=== PATIENT | male | born 1945 | race Caucasian/White ===

== ENCOUNTER → 2019-01-18 09:36 | Outpatient (CLI) | payer MEDICARE, OTHER, SELFPAY ==
[2019-01-18 11:52] LABS: BUN Creatinine Ratio 22.2 (6-22); Blood Urea Nitrogen 20 mg/dL (9-20); Calcium 9.4 mg/dL (8.4-10.2); Carbon Dioxide 29 mmol/L (22-32); Chloride 103 mmol/L (98-107); Cholesterol 202 mg/dL (140-199); Estimated Glomerular Filt Rate > 60.0 mL/min (>60); Glucose 86 mg/dL (80-110); HDL Cholesterol 63 mg/dL (40-60); HEMOLYSIS < 15 (0-50); LDL Cholesterol Calculated 128 mg/dL (<100); Potassium 4.6 mmol/L (3.4-5.1); Sodium 140 mmol/L (137-145); Triglycerides 54 mg/dL (35-150)
[2019-01-18 12:22] LABS: Prostate Specific Antigen Scrn 1.18 ng/mL (0.1-4.0)
[2019-01-18 13:04] LABS: Free T4, Direct Thyroxine 0.58 ng/dL (0.78-2.19)
== END ==
PROVIDERS: PCP Internal Medicine; Visit Provider Internal Medicine
DX: I10 Essential (primary) hypertension (principal); E78.5 Hyperlipidemia, unspecified; E03.9 Hypothyroidism, unspecified; Z12.5 Encounter for screening for malignant neoplasm of prostate
CPT/HCPCS: 36415; 80048; 80061; 84439; 84443; G0103

== ENCOUNTER → 2019-05-01 09:47 | Outpatient (CLI) | payer MEDICARE, OTHER, SELFPAY ==
[2019-05-01 11:35] LABS: Alanine Aminotransferase 16 IU/L (<50); Albumin 4.8 g/dL (3.5-5.0); Albumin Globulin Ratio 1.5 (1.0-2.8); Alkaline Phosphatase 52 U/L (38-126); Aspartate Aminotransferase 31 IU/L (17-59); Bilirubin Total 0.9 mg/dL (0.2-1.3); Blood Urea Nitrogen 17 mg/dL (9-20); Calcium 9.7 mg/dL (8.4-10.2); Carbon Dioxide 31 mmol/L (22-32); Chloride 99 mmol/L (98-107); Cholesterol 244 mg/dL (140-199); Estimated Glomerular Filt Rate > 60.0 mL/min (>60); Globulin 3.3 g/dL (1.7-4.1); Glucose 84 mg/dL (80-110); HDL Cholesterol 78 mg/dL (40-60); HEMOLYSIS < 15 (0-50); LDL Cholesterol Calculated 153 mg/dL (<100); Potassium 4.3 mmol/L (3.4-5.1); Sodium 138 mmol/L (137-145); Total Protein 8.1 g/dL (6.3-8.2); Triglycerides 67 mg/dL (35-150)
[2019-05-01 11:51] LABS: Free T4, Direct Thyroxine 0.62 ng/dL (0.78-2.19)
[2019-05-03 19:27] LABS: Triiodothyronine T3 Total 101 ng/dL (76-181)
== END ==
PROVIDERS: PCP Internal Medicine; Visit Provider Internal Medicine
DX: E03.9 Hypothyroidism, unspecified (principal); E78.5 Hyperlipidemia, unspecified
CPT/HCPCS: 36415; 80053; 80061; 84439; 84443; 84480

== ENCOUNTER → 2019-07-17 08:41 | Outpatient (CLI) | payer MEDICARE, OTHER, SELFPAY ==
[2019-07-17 10:24] LABS: High Sensitivity CRP - Cardiac 0.5 mg/L (1.0-3.0)
[2019-07-19 14:56] LABS: Apolipoprotein A1 180 mg/dL (> 114); Apolipoprotein B 103 mg/dL (< 90)
== END ==
PROVIDERS: PCP Internal Medicine; Referring Provider Internal Medicine; Visit Provider Internal Medicine
DX: E78.5 Hyperlipidemia, unspecified (principal)
CPT/HCPCS: 36415; 82172; 86140

== ENCOUNTER → 2020-02-09 09:00 | Outpatient (CLI) | payer MEDICARE, OTHER, SELFPAY ==
[2020-02-09 09:22] LABS: Add Manual Diff / Slide Review NO; Basophils Absolute Auto 0 /uL (0-100); Basophils Percent Auto 0.5 % (0-2); Eosinophils Absolute Auto 100 /uL (0-450); Eosinophils Percent Auto 2.8 % (2-4); Hematocrit 45.3 % (41-53); Hemoglobin 15.2 g/dL (13.5-17.5); Lymphocytes Absolute Auto 1400 /uL (1100-4500); Lymphocytes Percent Auto 30.7 % (25-40); Mean Corpuscular HGB Conc 33.6 % (30-36); Mean Corpuscular Hemoglobin 33.1 PG (26-34); Mean Corpuscular Volume 98.4 fL (80-100); Monocytes Absolute Auto 800 /uL (0-900); Monocytes Percent Auto 17.1 % (3-14); Neutrophils Absolute Auto 2300 /uL (1500-7000); Neutrophils Percent Auto 48.9 % (50-75); Platelet Count 246 X10^3/uL (150-400); Red Cell Distribution Width 13.8 % (11.6-14.8); White Blood Cell Count 4.7 X10^3/uL (4.5-11.0)
[2020-02-09 09:42] LABS: Alanine Aminotransferase 17 IU/L (<50); Albumin 4.5 g/dL (3.5-5.0); Albumin Globulin Ratio 1.4 (1.0-2.8); Alkaline Phosphatase 51 U/L (38-126); Aspartate Aminotransferase 30 IU/L (17-59); BUN Creatinine Ratio 16.5 (6-22); Blood Urea Nitrogen 15 mg/dL (9-20); Calcium 9.5 mg/dL (8.4-10.2); Carbon Dioxide 28 mmol/L (22-32); Chloride 102 mmol/L (98-107); Cholesterol 212 mg/dL (140-199); Estimated Glomerular Filt Rate > 60.0 mL/min (>60); Globulin 3.3 g/dL (1.7-4.1); Glucose 92 mg/dL (80-110); HDL Cholesterol 84 mg/dL (40-60); HEMOLYSIS < 15 (0-50); LDL Cholesterol Calculated 112 mg/dL (<100); Potassium 4.3 mmol/L (3.4-5.1); Sodium 137 mmol/L (137-145); Total Protein 7.8 g/dL (6.3-8.2); Triglycerides 80 mg/dL (35-150)
[2020-02-09 09:56] LABS: Free T3, Triiodothyronine Free 3.39 pg/mL (2.77-5.27); Free T4, Direct Thyroxine 0.72 ng/dL (0.78-2.19)
[2020-02-10 08:11] LABS: Triiodothyronine T3 Total 83 ng/dL (71-180)
== END ==
PROVIDERS: PCP Internal Medicine; Referring Provider Internal Medicine; Visit Provider Internal Medicine
DX: E78.5 Hyperlipidemia, unspecified (principal); I10 Essential (primary) hypertension; E03.9 Hypothyroidism, unspecified
CPT/HCPCS: 36415; 80053; 80061; 84439; 84443; 84480; 84481; 85025

== ENCOUNTER → 2020-02-29 10:27 | Outpatient (CLI) | payer MEDICARE, OTHER, SELFPAY ==
[2020-03-01 14:12] LABS: COVID19 Sendout Not Detected (Not Detect)
== END ==
PROVIDERS: PCP Internal Medicine; Visit Provider Physician Assistant
DX: Z11.59 Encounter for screening for other viral diseases (principal)
CPT/HCPCS: 87635

== ENCOUNTER 2020-03-03 08:59 | Day surgery (SDC) | payer MEDICARE, OTHER, SELFPAY ==
[2020-03-02 08:48] VITALS: BMI 22.7
[2020-03-03 09:34] VITALS: BP 146/85; PULSE 63; RESP 16; TEMP 36.3; O2SAT 98; BMI 22.6
[2020-03-03] MEDS: LACTATED RINGERS 1,000 ML 100 ML IV (09:44)
--- NOTE | 2020-03-03 10:56 | PM.PREOP ---
Pre-operative Note COVID-19 COVID-19 status: Negative Result date/Date tested (Pos, Neg/Pending): 02/29/20 Interval Note History & Physical reviewed/Exam performed by Physician: Yes Changes to H&P: No
[2020-03-03] MEDS: CEFAZOLIN 2 GM/100 ML FROZ.PIGGY IV (11:22)
--- NOTE | 2020-03-03 11:37 | SUR.OPER ---
Supine on padded OR bed, head on pillow, arms secured on padded arm boards at <90 degrees abduction, legs uncrossed, safety belt at thigh, tape over blanket over lower legs.
[2020-03-03] MEDS: BUPIVACAINE 0.25% W/ EPI 30 ML VIAL INJ ×2 (11:49→11:54)
[2020-03-03] MEDS: BUPIVACAINE LIPOSOME 266 MG/20 ML VIAL INJ (11:54)
--- NOTE | 2020-03-03 12:25 | P.OP_ITS ---
Operative Date/Time/Diagnoses Date of procedure: 03/03/20 Time of procedure: 12:25 Procedure & Clinicians Procedure: Open repair of incarcerated inguinal hernia with mesh Same procedure as scheduled: Yes Indications: Symptomatic left inguinal hernia; not reducible Surgeon: Emilia Johnson Click Yes if Unassisted: Yes Anesthesia Type: General Operative Notes Findings: direct hernia, incarcerated fat; attenuated and scarred nerve fibers Specimen(s): none sent Prosthetic devices, grafts, tissues, transplants, or devices: BARD soft mesh Estimated Blood Loss (mL): 1 Procedure in detail: The patient was brought into the OR, placed supine on the OR table, and appropriate preoperative antibiotics were given. Sequential compression devices were placed on both legs and turned on. General anesthesia was induced and the patient was intubated with an LMA by the anesthesiologist. The right lower abdomen and groin were prepped and draped in sterile fashion for inguinal incision. A surgical time out was conducted. Local anesthetic was infiltrated into the skin and a 15 blade was used to make an oblique 10cm incision two finger breadths superior to the inguinal ligament. Dissection was carried down to through the subcutaneous fat and darius's fascia. Dissection was carried down to the aponeurosis of the external oblique. Using a fresh 15 blade, I opened the aponeurosis after giving generous local anesthetic. There was an incarcerated direct inguinal hernia, a very scarred and attenuated charleen oinguinal nerve, and a weak inguinal canal floor. I divided the scarred nerve fibers using Metzenbaum scissors, and tucked the proximal end into muscle. I then gave local anesthetic in the inguinal canal floor, pubic tubercle, and conjoint tendon, using a total of 60mL of 0.25% Marcaine with Epi. I also infiltrated the area superior to Poupart's ligament with 20mL Exparel in small aliquots. Incarcerated fat was seen trapped in the direct hernia defect. The hernia sac was opened, and the incarcerated fat was divided and freed from the inguinal floor and reduced. The canal floor and direct defect were closed using 2-0 PDS. A BARD macroporous inguinal hernia mesh was then brought into the field and shaped to fit the groin. I secured it to the ligaments overlying the pubic tubercle with 2cm overlap, and then secured it to the inguinal ligament inferiorly and the conjoint tendon superiorly with 2-0 PDS suture. I made an opening in the mesh to accommodate the spermatic cord, ensuring it was appropriately sized to avoid strangulation of the cord. Once the mesh was secure, I closed the external oblique aponeurosis with 3-0 Vicryl. I closed the Darius's fascia with 3-0 Vicryl. The remaining local anesthetic was given in the skin and soft tissue. The skin was closed with running 4-0 Monocryl subcuticular stitch. The skin edges were sealed with Dermabond. The patient was awakened from anesthesia and extubated. He tolerated the procedure well. Needle, sponge and instrument counts were correct x 2. The patient was transferred to PACU in stable condition. Complications: none Post-operative Condition: stable Disposition: PACU
[2020-03-03 12:26] VITALS: BP 134/88; PULSE 89; RESP 11; TEMP 36.5; O2SAT 94
[2020-03-03 12:31] VITALS: BP 139/85; PULSE 89; RESP 14; TEMP 36.2; O2SAT 95
[2020-03-03 12:36] VITALS: BP 120/77; PULSE 79; RESP 13; TEMP 36.7; O2SAT 95
[2020-03-03 12:49] VITALS: BP 118/85; PULSE 77; RESP 19; TEMP 36.4; O2SAT 95
== END 2020-03-03 13:03 | disposition home or self-care (01) ==
PROVIDERS: PCP Internal Medicine; Referring Provider Surgery; Visit Provider Surgery
PROC: (CPT 49507; principal; 2020-03-03 10:45)
DX: K40.90 Unilateral inguinal hernia, without obstruction or gangrene, not specified as recurrent (principal)
CPT/HCPCS: 49507; C1781; C9290; J0690; J1100; J1885; J2250; J2405; J2704; J3010

== ENCOUNTER → 2020-05-18 11:30 | Outpatient (CLI) | payer MEDICARE, OTHER, SELFPAY ==
[2020-05-18 16:25] LABS: Free T4, Direct Thyroxine 1.09 ng/dL (0.78-2.19)
[2020-05-18 16:37] LABS: Prostate Specific Antigen 2.66 ng/mL (0.10-4.00)
== END ==
PROVIDERS: PCP Internal Medicine; Referring Provider Internal Medicine; Visit Provider Internal Medicine
DX: Z12.5 Encounter for screening for malignant neoplasm of prostate (principal); E03.9 Hypothyroidism, unspecified
CPT/HCPCS: 36415; 84153; 84439; 84443; G0103

== ENCOUNTER → 2020-10-26 07:59 | Outpatient (CLI) | payer MEDICARE, OTHER, SELFPAY ==
[2020-10-26 09:27] LABS: Alanine Aminotransferase 16 IU/L (<50); Albumin 4.1 g/dL (3.5-5.0); Albumin Globulin Ratio 1.2 (1.0-2.8); Alkaline Phosphatase 44 U/L (38-126); Aspartate Aminotransferase 34 IU/L (17-59); Bilirubin Total 0.6 mg/dL (0.2-1.3); Blood Urea Nitrogen 18 mg/dL (9-20); Calcium 9.4 mg/dL (8.4-10.2); Carbon Dioxide 29 mmol/L (22-32); Chloride 102 mmol/L (98-107); Cholesterol 207 mg/dL (140-199); Estimated Glomerular Filt Rate > 60.0 mL/min (>60); Globulin 3.3 g/dL (1.7-4.1); Glucose 93 mg/dL (80-110); HDL Cholesterol 70 mg/dL (40-60); HEMOLYSIS < 15 (0-50); LDL Cholesterol Calculated 126 mg/dL (<100); Potassium 4.2 mmol/L (3.4-5.1); Sodium 137 mmol/L (137-145); Total Protein 7.4 g/dL (6.3-8.2); Triglycerides 55 mg/dL (35-150)
[2020-10-26 10:11] LABS: Vitamin D 25 Hydroxy (D3) 47.9 ng/mL (30.0-100.0)
[2020-10-26 10:16] LABS: Free T4, Direct Thyroxine 0.96 ng/dL (0.78-2.19)
[2020-10-26 10:30] LABS: Thyroid Stimulating Hormone 6.42 uIU/mL (0.47-4.68)
== END ==
PROVIDERS: PCP Internal Medicine; Referring Provider Internal Medicine; Visit Provider Internal Medicine
DX: E03.9 Hypothyroidism, unspecified (principal); E55.9 Vitamin D deficiency, unspecified; K21.9 Gastro-esophageal reflux disease without esophagitis
CPT/HCPCS: 36415; 80053; 80061; 82306; 84439; 84443

== ENCOUNTER → 2022-09-18 16:10 | Outpatient (CLI) | payer MEDICARE, SELFPAY ==
[2022-09-18 17:34] LABS: Alanine Aminotransferase 19 IU/L (<50); Albumin 4.1 g/dL (3.5-5.0); Albumin Globulin Ratio 1.3 (1.0-2.8); Alkaline Phosphatase 45 U/L (38-126); Aspartate Aminotransferase 28 IU/L (17-59); BUN Creatinine Ratio 19.8 (6-22); Bilirubin Total 0.5 mg/dL (0.2-1.3); Blood Urea Nitrogen 20 mg/dL (9-20); Calcium 9.2 mg/dL (8.4-10.2); Carbon Dioxide 30 mmol/L (22-32); Chloride 100 mmol/L (98-107); Estimated Glomerular Filt Rate > 60 mL/min (>60); Globulin 3.1 g/dL (1.7-4.1); Glucose 96 mg/dL (80-110); HEMOLYSIS < 15 (0-50); Sodium 137 mmol/L (137-145); Total Protein 7.2 g/dL (6.3-8.2)
[2022-09-18 18:01] LABS: Free T4, Direct Thyroxine 1.01 ng/dL (0.78-2.19)
[2022-09-18 18:15] LABS: Thyroid Stimulating Hormone 4.75 uIU/mL (0.47-4.68)
== END ==
PROVIDERS: PCP Internal Medicine; Referring Provider Internal Medicine; Visit Provider Internal Medicine
DX: E03.9 Hypothyroidism, unspecified (principal); Z79.899 Other long term (current) drug therapy
CPT/HCPCS: 36415; 80053; 84439; 84443

== ENCOUNTER → 2023-01-19 14:16 | Outpatient (CLI) | payer MEDICARE, SELFPAY ==
--- NOTE | 2023-01-19 14:17 | DI.US.S_ITS ---
PROCEDURE: US THYROID INDICATIONS: LEFT THYROID NODULE TECHNIQUE: Real-time scanning was performed of the thyroid gland, with image documentation. COMPARISON: None. FINDINGS: Right: Thyroid lobe measures 4.5 x 0.9 x 1.6 cm, and is heterogeneous in echotexture. Increased vascularity. Left: Thyroid lobe measures 4.0 x 1.0 x 1.3 cm, and is heterogeneous in echotexture. Increased vascularity. Isthmus: 3.2 mm thick. Nodule number: 1 Location: Right inferior Size: 0.7 x 0.5 x 0.7 cm. Composition: Solid Echogenicity: isoechoic Shape: wider than tall. Margins: Smooth Echogenic foci: Non Total points: 3 ACR TI-RADS category: 3 IMPRESSION: 1. Heterogeneous thyroid gland with increased vascularity suggesting thyroiditis. Please correlate with thyroid function tests. 2. A small mildly suspicious right thyroid nodule. See enclosed follow-up recommendation. ACR TI-RADS definitions and recommendations: TI-RADS 1 (benign): 0 points. FNA not needed. TI-RADS 2 (not suspicious): 2 points. FNA not needed. TI-RADS 3 (mildly suspicious): 3 points. * FNA if 2.5 cm or larger, follow up if 1.5 cm or larger (at 1, 3, and 5 years). TI-RADS 4 (moderately suspicious): 4-6 points. * FNA if 1.5 cm or larger, follow up if 1 cm or larger (at 1, 2, 3, and 5 years). TI-RADS 5 (highly suspicious): 7 points or more. * FNA if 1 cm or larger, follow up if 0.5 cm or larger (every year for 5 years). Dictated by: Kai Cueto M.D. on 01/19/2023 at 23:56 Approved by: Kai Cueto M.D. on 01/19/2023 at 23:59
== END ==
PROVIDERS: PCP Internal Medicine; Referring Provider Internal Medicine; Visit Provider Internal Medicine
DX: E04.1 Nontoxic single thyroid nodule (principal)
CPT/HCPCS: 76536

== ENCOUNTER → 2023-06-15 10:49 | Outpatient (CLI) | payer MEDICARE, SELFPAY ==
[2023-06-15 13:32] LABS: BUN Creatinine Ratio 21.7 (6-22); Blood Urea Nitrogen 20 mg/dL (9-20); Calcium 9.7 mg/dL (8.4-10.2); Carbon Dioxide 32 mmol/L (22-32); Chloride 101 mmol/L (98-107); Estimated Glomerular Filt Rate > 60 mL/min (>60); Glucose 86 mg/dL (80-110); HEMOLYSIS < 15 (0-50); Potassium 4.6 mmol/L (3.4-5.1); Sodium 139 mmol/L (137-145)
== END ==
PROVIDERS: PCP Internal Medicine; Referring Provider Internal Medicine Cardiovascular Disease; Visit Provider Internal Medicine Cardiovascular Disease
DX: I50.22 Chronic systolic (congestive) heart failure (principal)
CPT/HCPCS: 36415; 80048

== ENCOUNTER → 2023-07-10 06:52 | Outpatient (CLI) | payer OTHER, SELFPAY ==
[2023-07-10 08:33] LABS: Cholesterol 227 mg/dL (140-199); HDL Cholesterol 77 mg/dL (40-60); LDL Cholesterol Calculated 132 mg/dL (<100); Triglycerides 90 mg/dL (35-150)
[2023-07-10 08:55] LABS: Free T4, Direct Thyroxine 0.96 ng/dL (0.78-2.19)
[2023-07-10 09:09] LABS: Thyroid Stimulating Hormone 9.05 uIU/mL (0.47-4.68)
== END ==
PROVIDERS: PCP Internal Medicine; Referring Provider Internal Medicine; Visit Provider Internal Medicine
DX: E03.9 Hypothyroidism, unspecified (principal); Z13.6 Encounter for screening for cardiovascular disorders; I07.1 Rheumatic tricuspid insufficiency
CPT/HCPCS: 36415; 80061; 84439; 84443

== ENCOUNTER → 2023-08-03 16:41 | Outpatient (CLI) | payer OTHER, SELFPAY ==
--- NOTE | 2023-08-03 16:44 | DI.US.S_ITS ---
PROCEDURE: US THYROID INDICATIONS: THYROID NODULE FOLLOW UP TECHNIQUE: Real-time scanning was performed of the thyroid gland, with image documentation. COMPARISON: [facility], [place], US THYROID, 01/19/2023, 14:25. FINDINGS: Right: Thyroid lobe measures 4.5 x 1.2 x 1.1 cm, and is homogeneous in echotexture. Left: Thyroid lobe measures 4.0 x 1.3 x 1.3 cm, and is homogenous in echotexture. Isthmus: 0.3 cm thick. Nodule number: 1 Location: Right inferior Size: 0.8 x 0.6 x 0.5 centimeter, previously 0.7 x 0.7 x 0.5 cm. Composition: Solid Echogenicity: Isoechoic Shape: wider than tall. Margins: Smooth Echogenic foci: None Total points: 3 ACR TI-RADS category: Mildly suspicious IMPRESSION: Mildly suspicious 0.8 centimeter right inferior thyroid nodule. Follow-up imaging recommendations as below: ACR TI-RADS definitions and recommendations: TI-RADS 1 (benign): 0 points. FNA not needed. TI-RADS 2 (not suspicious): 2 points. FNA not needed. TI-RADS 3 (mildly suspicious): 3 points. * FNA if 2.5 cm or larger, follow up if 1.5 cm or larger (at 1, 3, and 5 years). TI-RADS 4 (moderately suspicious): 4-6 points. * FNA if 1.5 cm or larger, follow up if 1 cm or larger (at 1, 2, 3, and 5 years). TI-RADS 5 (highly suspicious): 7 points or more. * FNA if 1 cm or larger, follow up if 0.5 cm or larger (every year for 5 years). Approved by: Phyllis Ramirez M.D. on 08/06/2023 at 0:53
== END ==
PROVIDERS: PCP Internal Medicine; Referring Provider Internal Medicine; Visit Provider Internal Medicine
DX: E04.1 Nontoxic single thyroid nodule (principal)
CPT/HCPCS: 76536

== ENCOUNTER → 2024-05-15 11:56 | Outpatient (CLI) | payer MEDICARE, SELFPAY ==
--- NOTE | 2024-05-15 11:58 | DI.MG.S_ITS ---
MALE BILATERAL DIGITAL DIAGNOSTIC MAMMOGRAM 3D/2D: 05/15/2024 CLINICAL: Left breast pain. No prior exams were available for comparison. The breasts are almost entirely fatty (category a/<25% glandular tissue). There is asymmetric left greater than right gynecomastia corresponding to area of clinical concern. No other significant masses, calcifications, or other findings are seen in either breast. IMPRESSION: BENIGN Left breast asymmetric gynecomastia corresponding to area of clinical concern. Finding is benign. No mammographic evidence of malignancy. Clinical follow-up is recommended, and further management of palpable abnormalities or other focal signs or symptoms should be based on the results of clinical evaluation. If palpable abnormality or other concerning symptom persists or progresses, further clinical evaluation should be considered. Findings and recommendations were conveyed to the patient during today's evaluation. This exam was interpreted at Station ID: [id number]. NOTE: For mammograms, a report in lay terms will be sent to the patient. Approximately 15% of breast malignancies will not be visualized mammographically. In the management of a palpable breast mass, a negative mammogram must not discourage biopsy of a clinically suspicious lesion. Electronically Signed By: Phyllis Ramirez M.D., Ph.D. eb/:05/15/2024 12:46:50 letter sent: Clinical Evaluation ACR BI-RADS Category 2: Benign
== END ==
PROVIDERS: PCP Internal Medicine; Referring Provider Internal Medicine; Visit Provider Internal Medicine
DX: N62 Hypertrophy of breast (principal); N64.4 Mastodynia
CPT/HCPCS: 77066; G0279

== ENCOUNTER → 2024-08-21 08:30 | Outpatient (CLI) | payer MEDICARE, SELFPAY ==
--- NOTE | 2024-08-21 08:31 | DI.US.S_ITS ---
PROCEDURE: US THYROID INDICATIONS: 1 Year Follow Up TECHNIQUE: Real-time scanning was performed of the thyroid gland, with image documentation. COMPARISON: [facility], [place], US THYROID, 08/03/2023, 16:52. FINDINGS: Thyroid: Right lobe measures 4.5 x 1.4 x 1.2 cm. Left lobe measures 4.0 x 1.4 x 1.2 cm. Isthmus is 0.3 cm thick. Echotexture is heterogeneous. Mildly increased thyroid vascularity. Subcentimeter right thyroid nodule appears stable. IMPRESSION: Subcentimeter right thyroid nodule does not require dedicated imaging follow-up. Mildly heterogeneous and hypervascular thyroid can be seen with prior thyroiditis. ACR TI-RADS definitions and recommendations: TI-RADS 1 (benign): 0 points. FNA not needed. TI-RADS 2 (not suspicious): 2 points. FNA not needed. TI-RADS 3: 3 points. * FNA if 2.5 cm or larger, follow up if 1.5 cm or larger (at 1, 3, and 5 years). TI-RADS 4: 4-6 points. * FNA if 1.5 cm or larger, follow up if 1 cm or larger (at 1, 2, 3, and 5 years). TI-RADS 5: 7 points or more. * FNA if 1 cm or larger, follow up if 0.5 cm or larger (every year for 5 years). Approved by: Jersey Henderson M.D. on 08/21/2024 at 13:58
== END ==
LOC: US 08:31
PROVIDERS: PCP Internal Medicine; Referring Provider Internal Medicine; Visit Provider Internal Medicine
DX: E04.1 Nontoxic single thyroid nodule (principal)
CPT/HCPCS: 76536